=== PATIENT | female | born 1985 | race Caucasian/White ===

== ENCOUNTER 2016-12-05 14:51 | Emergency (ER) | payer OTHER ==
[~2016-12-05] VITALS: Ht 167.6 cm; Wt 89.0 kg
[~2016-12-05 14:51] MED LIST: AMOX875 PO
[2016-12-05 15:01] VITALS: BP 122/85; PULSE 89; RESP 16; TEMP 98.6; O2SAT 100
[2016-12-05 15:29] LABS: BLOOD, URINE NEG (NEG); GLUCOSE,URINE NEG (NEG); KETONE, URINE NEG (NEG); NITRITE,URINE NEG (NEG)
[2016-12-05 15:53] LABS: URINE COLOR YELLOW (YELLW/STRAW)
[2016-12-05 15:55] LABS: BACTERIA, URINE RARE /hpf; SQUAMOUS EPITHELIAL CELL URINE 0-5 /hpf (0-5)
[2016-12-05 15:56] LABS: COMMENT (UR) CULT NOT INDICATED; CULTURE IF INDICATED CULT NOT INDICATED
[2016-12-05] MEDS ORDERED: MACR100C2 PO (16:01)
--- NOTE | 2016-12-05 16:01 | PD ---
HPI Chief Complaint: Complaint Time Seen by Provider: 15:41 Travel History International Travel<30 days: No Contact w/Intl Traveler<30days: No Traveled to known affect area: No History of Present Illness HPI Patient is a 31-year-old female presents emergency Department with a complaint of cloudy urine. She denies any dysuria back pain fevers abdominal pain. Patient states that she is trying to become and wanted to be checked out to make sure she didn't have a urinary tract infection. She denies any vaginal bleeding vaginal discharge. She states took a home test this morning which was negative. PFSH Past Medical History Diminished Hearing: No Influenza Vaccination: Yes ?: Not LMP: 11/14/16 : 1 Para: 1 Past Surgical History Cholecystectomy: Yes Other Surgery: Yes (SURGERY ON LEFT EYE UNABLE TO MEMBER WHY, DONE WHEN A CHILD ) Social History Alcohol Use: Yes (OCCAS.) Tobacco Use: No Substance Use: No Allergies-Medications (Allergen,Severity, Reaction): Coded Allergies: No Known Allergies (Verified , 12/05/16) Reported Meds & Prescriptions Reported Meds & Active Scripts Active Macrobid (Nitrofurantoin Monoh/Nitrofur Macro) 100 Mg Cap 100 Mg PO BID 5 Days Review of Systems Except as stated in HPI: all other systems reviewed are Neg Physical Exam Narrative GENERAL: Well-nourished, well-developed patient. SKIN: Warm and dry. HEAD: Normocephalic. EYES: No scleral icterus. No injection or drainage. NECK: Supple, trachea midline. No JVD or lymphadenopathy. CARDIOVASCULAR: Regular rate and rhythm without murmurs, gallops, or rubs. RESPIRATORY: Breath sounds equal bilaterally. No accessory muscle use. GASTROINTESTINAL: Abdomen soft, non-tender, nondistended. MUSCULOSKELETAL: No cyanosis, or edema. BACK: Nontender without obvious deformity. No CVA tenderness. Data Data Last Documented VS Vital Signs Date Time Temp Pulse Resp B/P Pulse Ox O2 Delivery O2 Flow Rate FiO2 12/05/16 15:01 98.6 89 16 122/85 100 Orders Urinalysis - C+S If Indicated (12/05/16 14:53) Ed Urine Pregnancytest Poc (12/05/16 14:53) Labs Laboratory Tests Test 12/05/16 15:05 Urine Color YELLOW Urine Turbidity CLEAR Urine pH 6.0 Urine Specific [place] 1.030 Urine Protein NEG mg/dL Urine Glucose (UA) NEG mg/dL Urine Ketones NEG mg/dL Urine Occult Blood NEG Urine Nitrite NEG Urine Bilirubin NEG Urine Leukocyte Esterase SMALL Urine WBC 3-5 /hpf Urine Squamous Epithelial 0-5 /hpf Cells Urine Bacteria RARE /hpf Microscopic Urinalysis Comment CULT NOT INDICATED MDM Medical Decision Making Medical Screen Exam Complete: Yes Emergency Medical Condition: Yes Differential Diagnosis UTI, BV, CV, . Narrative Course Patient was roomed in the emergency department, she appears well in no apparent distress. Her UA is negative. Discussed the results with the patient and recommended that she have a pelvic exam and offered her one in the emergency department which she declined. Discussed that there is risk that she could have vaginal candidiasis or bacterial vaginosis she verbalized understanding and declined pelvic exam. Discussed with her recommendations for symptomatic management only but if her symptoms persist from 12 days we'll prescribe her Macrobid. Discussed follow-up with her SEASONAL SALES ASSOCIATE and return to ED criteria. She appears well and is stable for discharge. Diagnosis Primary Impression: Cloudy urine Med/Other Pt SpecificInfo: Prescription(s) given Scripts Nitrofurantoin Monohydrate Macrocrystals (Macrobid)100 Mg Toc501 Mg PO BID 5 Days Ref 0 Prov:Samuel Camacho MD 12/05/16 Disposition: 01 DISCHARGE HOME Condition: Stable Samuel Camacho MD Dec 05, 2016 16:01
[2017-01-10] MEDS ORDERED: CALNTAB PO (00:41)
== END 2016-12-05 16:19 | disposition home or self-care (01) ==
LOC: PHED 14:51
DX: R82.99 Other abnormal findings in urine (principal)
CPT/HCPCS: 81001; 84703; 99283

== ENCOUNTER 2017-01-08 13:10 | Emergency (ER) | payer MEDICAID, OTHER ==
[~2017-01-08] VITALS: Ht 167.6 cm; Wt 66.0 kg
[~2017-01-08 13:10] MED LIST changes: -AMOX875 PO; +MACR100C2 PO
[2017-01-08 13:15] VITALS: BP 138/94; PULSE 106; RESP 16; TEMP 98.1; O2SAT 97
[2017-01-08] MEDS ORDERED: ONDANSETRON ODT 4 MG TAB PO/SL ONE (14:45)
--- NOTE | 2017-01-08 14:51 | PD ---
HPI Chief Complaint: GI Complaint Time Seen by Provider: 14:48 Travel History International Travel<30 days: No Contact w/Intl Traveler<30days: No Traveled to known affect area: No History of Present Illness HPI Patient is a 31-year-old female presenting to emergency Department for evaluation of nausea, vomiting. Patient states she is approximately 8 weeks and was advised by her HISTOPATHOLOGIST at [place] [facility] to come to the emergency department for evaluation. Patient denies any fever, chills, abdominal pain, vaginal bleeding or discharge. She states the symptoms started about a week ago. She was able to drink grape juice and took a few bites of crackers this morning. Otherwise she has been unable to keep any significant food or fluids down. Patient denies any history of hyperemesis gravidarum, this is her second . She further denies any sick contacts or significant medical history. [facility], [facility] Past Medical History Medical History: Denies Significant Hx Diminished Hearing: No ?: LMP: 11/14/16 : 1 Para: 1 Past Surgical History Cholecystectomy: Yes Other Surgery: Yes (SURGERY ON LEFT EYE UNABLE TO MEMBER WHY, DONE WHEN A CHILD ) Social History Alcohol Use: No (OCCAS.) Tobacco Use: No Substance Use: No Allergies-Medications (Allergen,Severity, Reaction): Coded Allergies: No Known Allergies (Verified , 01/08/17) Reported Meds & Prescriptions Reported Meds & Active Scripts Active Keflex (Cephalexin) 500 Mg Cap 500 Mg PO Q12H 7 Days Reported [ vitamins] 1 PO DAILY Review of Systems Except as stated in HPI: all other systems reviewed are Neg General / Constitutional: No: Fever, Chills HENT: No: Headaches, Lightheadedness Cardiovascular: No: Chest Pain or Discomfort Respiratory: No: Shortness of Breath Gastrointestinal: Positive: Nausea, Vomiting, No: Diarrhea, Abdominal Pain, Loss of Appetite Genitourinary: No: Dysuria Musculoskeletal: No: Myalgias Neurologic: No: Weakness, Dizziness Physical Exam Narrative GENERAL: Well-developed, well-nourished, alert female. Resting comfortably in no acute distress. SKIN: Warm and dry. HEAD: Atraumatic. Normocephalic. EYES: Pupils equal and round. No scleral icterus. No injection or drainage. ENT: No nasal bleeding or discharge. Mucous membranes pink and moist. NECK: Trachea midline. No JVD. CARDIOVASCULAR: Regular rate and rhythm. No murmur appreciated. RESPIRATORY: No accessory muscle use. Clear to auscultation. Breath sounds equal bilaterally. GASTROINTESTINAL: Abdomen soft, non-tender, nondistended. Hepatic and splenic margins not palpable. MUSCULOSKELETAL: No obvious deformities. No clubbing. No cyanosis. No edema. NEUROLOGICAL: Awake and alert. No obvious cranial nerve deficits. Motor grossly within normal limits. Normal speech. PSYCHIATRIC: Appropriate mood and affect; insight and judgment normal. Data Data Last Documented VS Vital Signs Date Time Temp Pulse Resp B/P Pulse Ox O2 Delivery O2 Flow Rate FiO2 01/08/17 17:05 82 20 122/80 96 01/08/17 16:52 Room Air 01/08/17 13:15 98.1 Orders Complete Blood Count With Diff (01/08/17 14:41) Comprehensive Metabolic Panel (01/08/17 14:41) Urinalysis - C+S If Indicated (01/08/17 14:41) Lipase (01/08/17 14:41) Ondansetron Odt (Zofran Odt) (01/08/17 14:45) Influenzae A/B Antigen (01/08/17 14:47) Iv Access Insert/Monitor (01/08/17 15:28) Sodium Chlor 0.9% 1000 Ml Inj (Ns 1000 M (01/08/17 15:30) Beta Hcg (Quant/Titer) (01/08/17 15:28) Labs Laboratory Tests Test 01/08/17 15:00 White Blood Count 13.5 TH/MM3 Red Blood Count 4.35 MIL/MM3 Hemoglobin 13.3 GM/DL Hematocrit 39.2 % Mean Corpuscular Volume 90.2 FL Mean Corpuscular Hemoglobin 30.5 PG Mean Corpuscular Hemoglobin 33.8 % Concent Red Cell Distribution Width 12.6 % Platelet Count 211 TH/MM3 Mean Platelet Volume 9.1 FL Neutrophils (%) (Auto) 73.4 % Lymphocytes (%) (Auto) 20.0 % Monocytes (%) (Auto) 5.4 % Eosinophils (%) (Auto) 0.8 % Basophils (%) (Auto) 0.4 % Neutrophils # (Auto) 9.9 TH/MM3 Lymphocytes # (Auto) 2.7 TH/MM3 Monocytes # (Auto) 0.7 TH/MM3 Eosinophils # (Auto) 0.1 TH/MM3 Basophils # (Auto) 0.1 TH/MM3 CBC Comment DIFF FINAL Differential Comment Urine Color YELLOW Urine Turbidity HAZY Urine pH 7.0 Urine Specific [place] 1.025 Urine Protein 30 mg/dL Urine Glucose (UA) NEG mg/dL Urine Ketones TRACE mg/dL Urine Occult Blood NEG Urine Nitrite NEG Urine Bilirubin NEG Urine Urobilinogen LESS THAN 2.0 MG/DL Urine Leukocyte Esterase LARGE Urine RBC LESS THAN 1 /hpf Urine WBC 7 /hpf Urine Squamous Epithelial 12 /hpf Cells Urine Bacteria OCC /hpf Urine Mucus MANY /lpf Microscopic Urinalysis Comment CULT NOT INDICATED Sodium Level 138 MEQ/L Potassium Level 3.8 MEQ/L Chloride Level 104 MEQ/L Carbon Dioxide Level 23.9 MEQ/L Anion Gap 10 MEQ/L Blood Urea Nitrogen 7 MG/DL Creatinine 0.55 MG/DL Estimat Glomerular Filtration 130 ML/MIN Rate Random Glucose 75 MG/DL Calcium Level 8.4 MG/DL Total Bilirubin 0.4 MG/DL Aspartate Amino Transf 18 U/L (AST/SGOT) Alanine Aminotransferase 27 U/L (ALT/SGPT) Alkaline Phosphatase 53 U/L Total Protein 7.3 GM/DL Albumin 3.5 GM/DL Lipase 214 U/L Human Chorionic Gonadotropin, [id number] MIU/ML Quant MDM Medical Decision Making Medical Screen Exam Complete: Yes Emergency Medical Condition: Yes Interpretation(s) Vital Signs Date Time Temp Pulse Resp B/P Pulse Ox O2 Delivery O2 Flow Rate FiO2 01/08/17 13:15 98.1 106 16 138/94 97 Differential Diagnosis Hyperemesis gravidarum versus electrolyte abnormality versus dehydration versus viral syndrome versus other Narrative Course Patient is a 31-year-old female reportedly 8 weeks . She has had nausea and vomiting for the last week with no significant by mouth intake. Patient reports having an outpatient ultrasound done with her HISTOPATHOLOGIST last week confirming her . Labs ordered and pending, workup initiated in triage , care of patient will be transferred to provider when a medical bed is available. Scripts Cephalexin (Keflex)500 Mg Tub654 Mg PO Q12H 7 Days Ref 0 Prov:Diya Schultz 01/08/17 Ninfa Newberry Jan 08, 2017 14:51
[2017-01-08 15:20] LABS: AUTOMATED NEUTROPHIL # 9.9 TH/MM3 (1.8-7.7); BASOPHIL # 0.1 TH/MM3 (0-0.2); BASOPHIL % 0.4 % (0.0-2.0); EOSINOPHIL # 0.1 TH/MM3 (0-0.4); EOSINOPHIL % 0.8 % (0.0-4.0); HEMATOCRIT 39.2 % (35.0-46.0); HEMO FLAGS DIFF FINAL; LYMPHOCYTE # 2.7 TH/MM3 (1.0-4.8); MEAN CELL VOLUME 90.2 FL (80.0-100.0); MEAN CORPUSCULAR HEMOGLOBIN 30.5 PG (27.0-34.0); MEAN CORPUSCULAR HGB CONC 33.8 % (32.0-36.0); MONO % 5.4 % (0.0-8.0); NEUT % 73.4 % (16.0-70.0); PLATELET COUNT 211 TH/MM3 (150-450); RED BLOOD COUNT 4.35 MIL/MM3 (4.00-5.30); RED CELL DISTRIBUTION WIDTH 12.6 % (11.6-17.2); WHITE BLOOD COUNT 13.5 TH/MM3 (4.0-11.0)
--- NOTE | 2017-01-08 15:29 | PD ---
Physical Exam Time Seen by Provider: 15:29 Narrative 31-year-old female who is approximately 8 weeks , followed by [facility] /[facility] G[facility]IN[facility], presents to emergency room for evaluation of nausea and vomiting. Patient states she has not been able to keep anything down over the last 2-3 days. Denies abdominal pain. No cramping. No vaginal bleeding or discharge. No recent illnesses, fever, or chills. No urinary symptoms. No other symptoms to report. Data Data Last Documented VS Vital Signs Date Time Temp Pulse Resp B/P Pulse Ox O2 Delivery O2 Flow Rate FiO2 01/08/17 15:34 92 20 117/82 100 Room Air 01/08/17 13:15 98.1 Orders Complete Blood Count With Diff (01/08/17 14:41) Comprehensive Metabolic Panel (01/08/17 14:41) Urinalysis - C+S If Indicated (01/08/17 14:41) Lipase (01/08/17 14:41) Ondansetron Odt (Zofran Odt) (01/08/17 14:45) Influenzae A/B Antigen (01/08/17 14:47) Iv Access Insert/Monitor (01/08/17 15:28) Sodium Chlor 0.9% 1000 Ml Inj (Ns 1000 M (01/08/17 15:30) Beta Hcg (Quant/Titer) (01/08/17 15:28) Labs Laboratory Tests Test 01/08/17 15:00 White Blood Count 13.5 TH/MM3 Red Blood Count 4.35 MIL/MM3 Hemoglobin 13.3 GM/DL Hematocrit 39.2 % Mean Corpuscular Volume 90.2 FL Mean Corpuscular Hemoglobin 30.5 PG Mean Corpuscular Hemoglobin 33.8 % Concent Red Cell Distribution Width 12.6 % Platelet Count 211 TH/MM3 Mean Platelet Volume 9.1 FL Neutrophils (%) (Auto) 73.4 % Lymphocytes (%) (Auto) 20.0 % Monocytes (%) (Auto) 5.4 % Eosinophils (%) (Auto) 0.8 % Basophils (%) (Auto) 0.4 % Neutrophils # (Auto) 9.9 TH/MM3 Lymphocytes # (Auto) 2.7 TH/MM3 Monocytes # (Auto) 0.7 TH/MM3 Eosinophils # (Auto) 0.1 TH/MM3 Basophils # (Auto) 0.1 TH/MM3 CBC Comment DIFF FINAL Differential Comment Urine Color YELLOW Urine Turbidity HAZY Urine pH 7.0 Urine Specific [place] 1.025 Urine Protein 30 mg/dL Urine Glucose (UA) NEG mg/dL Urine Ketones TRACE mg/dL Urine Occult Blood NEG Urine Nitrite NEG Urine Bilirubin NEG Urine Urobilinogen LESS THAN 2.0 MG/DL Urine Leukocyte Esterase LARGE Urine RBC LESS THAN 1 /hpf Urine WBC 7 /hpf Urine Squamous Epithelial 12 /hpf Cells Urine Bacteria OCC /hpf Urine Mucus MANY /lpf Microscopic Urinalysis Comment CULT NOT INDICATED Sodium Level 138 MEQ/L Potassium Level 3.8 MEQ/L Chloride Level 104 MEQ/L Carbon Dioxide Level 23.9 MEQ/L Anion Gap 10 MEQ/L Blood Urea Nitrogen 7 MG/DL Creatinine 0.55 MG/DL Estimat Glomerular Filtration 130 ML/MIN Rate Random Glucose 75 MG/DL Calcium Level 8.4 MG/DL Total Bilirubin 0.4 MG/DL Aspartate Amino Transf 18 U/L (AST/SGOT) Alanine Aminotransferase 27 U/L (ALT/SGPT) Alkaline Phosphatase 53 U/L Total Protein 7.3 GM/DL Albumin 3.5 GM/DL Lipase 214 U/L Human Chorionic Gonadotropin, [id number] MIU/ML Quant MDM Medical Record Reviewed: Yes Supervised Visit with MARIO: No Differential Diagnosis Nausea and vomiting during versus hypoglycemia versus hyperemesis gravidarum versus UTI Narrative Course 31-year-old female presents to emergency department for evaluation nausea and vomiting. Patient is approximately 8 weeks gestation. Appears without distress. Vital signs are stable. Laboratory Tests Test 01/08/17 15:00 White Blood Count 13.5 TH/MM3 Red Blood Count 4.35 MIL/MM3 Hemoglobin 13.3 GM/DL Hematocrit 39.2 % Mean Corpuscular Volume 90.2 FL Mean Corpuscular Hemoglobin 30.5 PG Mean Corpuscular Hemoglobin 33.8 % Concent Red Cell Distribution Width 12.6 % Platelet Count 211 TH/MM3 Mean Platelet Volume 9.1 FL Neutrophils (%) (Auto) 73.4 % Lymphocytes (%) (Auto) 20.0 % Monocytes (%) (Auto) 5.4 % Eosinophils (%) (Auto) 0.8 % Basophils (%) (Auto) 0.4 % Neutrophils # (Auto) 9.9 TH/MM3 Lymphocytes # (Auto) 2.7 TH/MM3 Monocytes # (Auto) 0.7 TH/MM3 Eosinophils # (Auto) 0.1 TH/MM3 Basophils # (Auto) 0.1 TH/MM3 CBC Comment DIFF FINAL Differential Comment Urine Color YELLOW Urine Turbidity HAZY Urine pH 7.0 Urine Specific [place] 1.025 Urine Protein 30 mg/dL Urine Glucose (UA) NEG mg/dL Urine Ketones TRACE mg/dL Urine Occult Blood NEG Urine Nitrite NEG Urine Bilirubin NEG Urine Urobilinogen LESS THAN 2.0 MG/DL Urine Leukocyte Esterase LARGE Urine RBC LESS THAN 1 /hpf Urine WBC 7 /hpf Urine Squamous Epithelial 12 /hpf Cells Urine Bacteria OCC /hpf Urine Mucus MANY /lpf Microscopic Urinalysis Comment CULT NOT INDICATED Sodium Level 138 MEQ/L Potassium Level 3.8 MEQ/L Chloride Level 104 MEQ/L Carbon Dioxide Level 23.9 MEQ/L Anion Gap 10 MEQ/L Blood Urea Nitrogen 7 MG/DL Creatinine 0.55 MG/DL Estimat Glomerular Filtration 130 ML/MIN Rate Random Glucose 75 MG/DL Calcium Level 8.4 MG/DL Total Bilirubin 0.4 MG/DL Aspartate Amino Transf 18 U/L (AST/SGOT) Alanine Aminotransferase 27 U/L (ALT/SGPT) Alkaline Phosphatase 53 U/L Total Protein 7.3 GM/DL Albumin 3.5 GM/DL Lipase 214 U/L Human Chorionic Gonadotropin, [id number] MIU/ML Quant Urinalysis is hazy with 30 protein area, trace ketones, large leukocyte esterase , 7 WBC, occasional bacteria, many mucus. Influenza screen is negative. Patient will be given IV fluids. She'll also be treated on Keflex and instructed to follow-up with her VENIPUNCTURIST. She agrees to return immediately with any acute worsening symptoms. Diagnosis Primary Impression: Nausea & vomiting Qualified Code: R11.14 - Bilious vomiting with nausea Additional Impressions: Qualified Code: Z3A.08 - 8 weeks gestation of UTI (urinary tract infection) Qualified Code: N39.0 - Urinary tract infection without hematuria, site unspecified Referrals: [facility] Patient Instructions: General Instructions, Urinary Tract Infection in (ED) Additional Instruction: Rest Clear liquid diet. Advance as tolerated small regular meals Maintain adequate oral hydration Follow-up with your VENIPUNCTURIST Return immediately with any acute worsening of symptoms Med/Other Pt SpecificInfo: Prescription(s) given Scripts Cephalexin (Keflex)500 Mg [id number] Mg PO Q12H 7 Days Ref 0 Prov:Diya Schultz 01/08/17 Disposition: 01 DISCHARGE HOME Condition: Stable Diya Schultz Jan 08, 2017 15:29
[2017-01-08] MEDS ORDERED: SODIUM CHLOR 0.9% 1000 ML INJ 1,000 ML IV ONE (15:30)
[2017-01-08 15:34] VITALS: BP 117/82; PULSE 92; RESP 20; O2SAT 100
[2017-01-08 15:37] LABS: BACTERIA, URINE OCC /hpf; BLOOD, URINE NEG (NEG); COMMENT (UR) CULT NOT INDICATED; CULTURE IF INDICATED CULT NOT INDICATED; GLUCOSE,URINE NEG (NEG); KETONE, URINE TRACE mg/dL (NEG); MUCUS URINE MANY /lpf (OCC); NITRITE,URINE NEG (NEG); SQUAMOUS EPITHELIAL CELL URINE 12 /hpf (0-5); URINE COLOR YELLOW (YELLW/STRAW)
[2017-01-08 15:47] LABS: ALT (GPT) 27 U/L (10-53); ANION GAP 10 MEQ/L (5-15); AST (GOT) 18 U/L (15-37); BICARBONATE 23.9 MEQ/L (21.0-32.0); BLOOD UREA NITROGEN 7 MG/DL (7-18); CHLORIDE 104 MEQ/L (98-107); GLOMERULAR FILTRATION RATE 130 ML/MIN (>89); POTASSIUM 3.8 MEQ/L (3.5-5.1); SODIUM (NA) 138 MEQ/L (136-145)
[2017-01-08 15:50] LABS: ALKALINE PHOSPHATASE 53 U/L (45-117); TOTAL BILIRUBIN ADULT 0.4 MG/DL (0.2-1.0)
[2017-01-08] MEDS ORDERED: prenatal vitamins PO (16:14)
[2017-01-08 16:17] LABS: BETA HCG QUANT 190460 MIU/ML (0-5)
[2017-01-08] MEDS ORDERED: CEPH-460 PO (16:29)
[2017-01-08 16:52] VITALS: BP 119/73; PULSE 85; RESP 18; O2SAT 100
[2017-01-08 17:05] VITALS: BP 122/80
[2017-01-10] MEDS ORDERED: CALNTAB PO (00:41)
== END 2017-01-08 17:14 | disposition home or self-care (01) ==
LOC: NEPE 13:10
DX: O23.41 Unspecified infection of urinary tract in pregnancy, first trimester (principal); O21.9 Vomiting of pregnancy, unspecified; Z3A.08 8 weeks gestation of pregnancy
CPT/HCPCS: 80053; 81001; 83690; 84702; 85025; 87804; 96360; 99284; J7030

== ENCOUNTER 2017-06-10 19:02 | Emergency (ER) | payer MEDICAID ==
[~2017-06-10 19:02] MED LIST changes: +CALNTAB PO; +CEPH-460 PO; -MACR100C2 PO
[2017-06-10] MEDS ORDERED: ONDANSETRON HCL 4 MG/2 ML VIAL IV ONE (20:00)
[2017-06-10] MEDS ORDERED: LACTATED RINGER'S 1000 ML INJ 1,000 ML IV ONE (20:00)
--- NOTE | 2017-06-10 20:04 | PD ---
HPI Chief Complaint Decreased appetite and diarrhea Date Seen: Jun 10, 2017 Time Seen: 20:01 Travel History International Travel<30 Days: No Contact w/Intl Traveler<30Days: No Known Affected Area: No History of Present Illness HPI 31-year-old at 30 weeks and 2 days comes in complaining of episodes of diarrhea accompanied by decrease appetite. Patient states that she had ind[place] food last night that resulted in symptoms of reflux throughout the night. This morning she had an episode of diarrhea followed by an additional 3 episodes over the next 4-6 hours. Patient took Imodium and approximately 12 noon with a decrease in the diarrhea that she has had poor appetite and some nausea. Patient denies emesis, fever, headache, abdominal pain. Patient has had a little bit of cramping which seems to occur with each episode of diarrhea. Patient has had normal movement. Para: 1 : 2 History Past Medical History Medical History: Denies Significant Hx Obstetric History Obstetric History Spontaneous vaginal delivery 1 Past Surgical History Narrative Surgical Cholecystectomy Family History Family History: Negative Social History Alcohol Use: No Tobacco Use: No Substance Abuse: No Allergies-Medications (Allergen,Severity, Reaction): Coded Allergies: No Known Allergies (Verified , 01/08/17) Home Meds Active Scripts Cephalexin (Keflex)500 Mg Hbn003 Mg PO Q12H 7 Days Ref 0 Prov:Diya Schultz 01/08/17 Reported Medications Vitamin (Calna)1 Tab Tab1 Tab PO DAILY 01/10/17 Review of Systems Except as stated in HPI: all other systems reviewed are Neg Physical Exam Narrative GENERAL: Well-nourished, well-developed patient. SKIN: Warm and dry. HEAD: Normocephalic and atraumatic. EYES: No scleral icterus. No injection or drainage. ENT: No nasal drainage noted. Mucous membranes pink. Airway patent. NECK: Supple, trachea midline. No JVD. CARDIOVASCULAR: Regular rate and rhythm without murmurs, gallops, or rubs. RESPIRATORY: Breath sounds equal bilaterally. No accessory muscle use. ABDOMEN/GI: Abdomen soft, non-tender, bowel sounds present, no rebound, no guarding Gravid to [-30] weeks size Fundal Height: [-] GENITOURINARY: Deferred External Genitalia: intact and normal in appearance BUS glands: [-] Cervix: [-] Dilatation: [-] Effacement: [-] Station: [-] Presentation: [-] Membranes: [intact or ruptured] Uterine Contractions: [-Absent] FHT's: Category: [1-] Baseline: [140-] Reactive: [-Moderate] Variability: [-Moderate] Decels: [-Absent] EXTREMITIES: No cyanosis or edema. BACK: Nontender without obvious deformity. No CVA tenderness. NEUROLOGICAL: Awake and alert. Motor and sensory grossly within normal limits. Five out of 5 muscle strength in all muscle groups. Normal speech. Data Data Orders Vital Signs (Adult) .ON ADMISSION (06/10/17 19:58) Labs Laboratory Tests Test 06/10/17 20:05 White Blood Count 13.1 TH/MM3 Red Blood Count 4.15 MIL/MM3 Hemoglobin 11.7 GM/DL Hematocrit 35.1 % Mean Corpuscular Volume 84.6 FL Mean Corpuscular Hemoglobin 28.0 PG Mean Corpuscular Hemoglobin 33.2 % Concent Red Cell Distribution Width 13.3 % Platelet Count 179 TH/MM3 Mean Platelet Volume 9.1 FL Urine Color YELLOW Urine Turbidity HAZY Urine pH 5.5 Urine Specific [place] 1.019 Urine Protein TRACE mg/dL Urine Glucose (UA) NEG mg/dL Urine Ketones 10 mg/dL Urine Occult Blood NEG Urine Nitrite NEG Urine Bilirubin NEG Urine Urobilinogen LESS THAN 2.0 MG/DL Urine Leukocyte Esterase LARGE Urine RBC 1 /hpf Urine WBC 7 /hpf Urine Squamous Epithelial 11 /hpf Cells Urine Amorphous Sediment RARE Urine Bacteria OCC /hpf Urine Mucus FEW /lpf Microscopic Urinalysis Comment CULT NOT INDICATED Sodium Level 137 MEQ/L Potassium Level 3.4 MEQ/L Chloride Level 107 MEQ/L Carbon Dioxide Level 21.6 MEQ/L Anion Gap 8 MEQ/L Blood Urea Nitrogen 5 MG/DL Creatinine 0.46 MG/DL Estimat Glomerular Filtration 159 ML/MIN Rate Random Glucose 84 MG/DL Calcium Level 7.7 MG/DL MDM Plan 31 yo at 30-31 weeks gestation with possible viral gastroenteritis, much improved with IV fluids and anti emetics Tolerating po well Declines a prescriptions for antiemetics Hydrate with electrolyte solutions Diagnosis Diagnosis: Primary Impression: Diarrhea in adult patient Additional Impressions: Nausea and vomiting during 30 weeks gestation of Disposition: 01 DISCHARGE HOME Lise Costa MD Jun 10, 2017 20:04
[2017-06-10 20:38] LABS: BACTERIA, URINE OCC /hpf; BLOOD, URINE NEG (NEG); COMMENT (UR) CULT NOT INDICATED; CULTURE IF INDICATED CULT NOT INDICATED; GLUCOSE,URINE NEG (NEG); HEMATOCRIT 35.1 % (35.0-46.0); KETONE, URINE 10 mg/dL (NEG); MEAN CELL VOLUME 84.6 FL (80.0-100.0); MEAN CORPUSCULAR HGB CONC 33.2 % (32.0-36.0); MUCUS URINE FEW /lpf (OCC); NITRITE,URINE NEG (NEG); PH, URINE 5.5 (5.0-8.5); PLATELET COUNT 179 TH/MM3 (150-450); RED BLOOD COUNT 4.15 MIL/MM3 (4.00-5.30); RED CELL DISTRIBUTION WIDTH 13.3 % (11.6-17.2); REVIEW FLAG FINAL; SQUAMOUS EPITHELIAL CELL URINE 11 /hpf (0-5); URINE COLOR YELLOW (YELLW/STRAW); WHITE BLOOD COUNT 13.1 TH/MM3 (4.0-11.0)
[2017-06-10 21:03] LABS: BICARBONATE 21.6 MEQ/L (21.0-32.0); POTASSIUM 3.4 MEQ/L (3.5-5.1)
== END 2017-06-10 21:00 | disposition home or self-care (01) ==
LOC: HOBED 19:02
DX: O99.89 Other specified diseases and conditions complicating pregnancy, childbirth and the puerperium (principal); R19.7 Diarrhea, unspecified; Z3A.30 30 weeks gestation of pregnancy
CPT/HCPCS: 80048; 81001; 85027; 96374; 96375; 99284; J2405; J7120